=== PATIENT | male | born 1995 | race Caucasian/White ===

== ENCOUNTER 2016-10-16 16:44 | Emergency (ER) | payer MEDICAID ==
[~2016-10-16] VITALS: Ht 177.8 cm; Wt 72.6 kg
--- NOTE | 2016-10-16 16:58 | NUR ---
DR MUÑOZ AT THE BEDSIDED FOR EVAL AND EXAM.
[2016-10-16] MEDS ORDERED: LEVE500T9 PO (17:06)
[2016-10-16] MEDS ORDERED: PHEN100C4 PO ×2 (17:06)
[2016-10-16] MEDS ORDERED: MORPHINE SULFATE 2 MG/1 ML DISP.SYRIN IV ONE (17:15)
[2016-10-16] MEDS ORDERED: ONDANSETRON 4 MG/2 ML VIAL IV ONE (17:15)
[2016-10-16 17:19] LABS: BASOPHILS # (AUTO) 0.1 K/uL (0.0-8.0); BASOPHILS % (AUTO) 0.8 % (0.0-2.0); EOSINOPHILS # (AUTO) 0.1 K/uL (0.0-0.7); EOSINOPHILS % (AUTO) 1.7 % (0.0-7.0); HEMATOCRIT 42.9 % (40-50); HEMOGLOBIN 14.2 G/DL (14.0-18.0); LYMPHOCYTES # (AUTO) 1.2 K/UL (0.8-4.8); LYMPHOCYTES % (AUTO) 15.6 % (20.5-51.5); MEAN CORPUSCULAR HEMOGLOBIN 30.2 UUG (27.0-31.0); MEAN CORPUSCULAR HGB CONC 33 g/dL (32.0-37.0); MONOCYTES # (AUTO) 0.7 K/UL (0.1-1.30); MONOCYTES % (AUTO) 8.3 % (0.0-11.0); NEUTROPHILS # (AUTO) 5.8 K/UL (1.8-8.9); NEUTROPHILS % (AUTO) 73.6 % (38.5-71.5); RED BLOOD CELL COUNT(AUTO) 4.71 MIL/UL (4.7-6.1); WHITE BLOOD COUNT (AUTO) 7.9 K/UL (4.0-11.2)
[2016-10-16 17:20] LABS: PLATELET COUNT (AUTO) 181 K/UL (150-450)
[2016-10-16] MEDS ORDERED: ONDANSETRON 4 MG/2 ML VIAL ONE (17:23)
[2016-10-16] MEDS ORDERED: MORPHINE SULFATE 2 MG/1 ML DISP.SYRIN ONE (17:24)
[2016-10-16 17:35] LABS: CARBON DIOXIDE 25 mmol/L (21-32); CHLORIDE 106 mmol/L (98-107); CREATININE 1.1 mg/dL (0.6-1.3); GLUCOSE 111 mg/dL (74-106); UREA NITROGEN, BLOOD 9 mg/dL (7-18)
[2016-10-16 17:41] LABS: ALANINE AMINOTRANSFERASE 28 U/L (16-63); ALKALINE PHOSPHATASE 73 U/L (50-136); ASPARTATE AMINOTRANSFERASE 28 U/L (15-37); BILIRUBIN,DIRECT < 0.1 mg/dL (0.0-0.2); BILIRUBIN,TOTAL 0.2 mg/dL (0.2-1.0); TOTAL PROTEIN, SERUM 7.2 g/dL (6.4-8.2)
[2016-10-16] MEDS ORDERED: LEVETIRACETAM 250 MG TABLET PO ONE (17:45)
[2016-10-16] MEDS ORDERED: PHENYTOIN SODIUM IV 1,000 MG in IV NORMAL SALINE 100 ML IV ONE (17:45)
[2016-10-16] MEDS ORDERED: LEVETIRACETAM 250 MG TABLET ONE (18:08)
[2016-10-16] MEDS ORDERED: PHENYTOIN SODIUM 250 MG/5 ML VIAL IV ONE (18:10)
[2016-10-16] MEDS ORDERED: KETOROLAC TROMETHAMINE 30 MG INJ ONE (18:24)
--- NOTE | 2016-10-16 18:38 | NUR ---
Pt resting in the bed w/ both eyes closed, remaines on seizure precaution. No seizure activity noted since arrival to ER.
[2016-10-16 19:00] VITALS: BP 144/55
[2016-10-16] MEDS ORDERED: KETOROLAC TROMETHAMINE 30 MG INJ IVP ONE (19:00)
--- NOTE | 2016-10-16 19:11 | NUR ---
Patient discharged to home in stable conditon. Written and verbal after care instructions given. Patient verbalizes understanding of instructions.
== END 2016-10-16 19:11 | disposition home or self-care (01) ==
LOC: ER 16:45
DX: S00.83XA Contusion of other part of head, initial encounter (principal); R56.9 Unspecified convulsions; M54.9 Dorsalgia, unspecified; X58.XXXA Exposure to other specified factors, initial encounter; Y93.89 Activity, other specified; Y92.9 Unspecified place or not applicable; Y99.9 Unspecified external cause status
CPT/HCPCS: 36415; 70450; 72072; 85025; A4663; J1165; J1885; J2270; J2405; J3490